=== PATIENT | female | born 1975 | race Caucasian/White ===

== ENCOUNTER → 2020-01-31 | Outpatient (CLI) | payer BC | LOC: LAB FS 07:21 | PROVIDERS: ATTEND Family Medicine | DX: Z01.89 Encounter for other specified special examinations (principal) | CPT/HCPCS: 87804 ==

== ENCOUNTER → 2020-04-17 | Outpatient (CLI) | payer BC, OTHER | LOC: LAB FS 16:37 | PROVIDERS: ATTEND Family Medicine | DX: Z20.828 Contact with and (suspected) exposure to other viral communicable diseases (principal) | CPT/HCPCS: 36415; 80051; 86769 ==

== ENCOUNTER → 2020-10-25 | Outpatient (CLI) | payer OTHER | LOC: LAB FS 13:30 | PROVIDERS: ATTEND Family Medicine | DX: U07.1 COVID-19 (principal) | CPT/HCPCS: 87635 ==

== ENCOUNTER → 2021-11-22 | Outpatient (CLI) | payer OTHER | LOC: LAB FS 09:16 | PROVIDERS: ATTEND Emergency Medicine | DX: R68.83 Chills (without fever) (principal); R53.1 Weakness; R42 Dizziness and giddiness; M79.10 Myalgia, unspecified site | CPT/HCPCS: 87804 ==

== ENCOUNTER → 2022-03-13 | Outpatient (CLI) | payer OTHER ==
[2022-03-13 11:07] LABS: POTASSIUM 3.8 MMOL/L (3.6-5.0)
[2022-03-13 11:08] LABS: ALBUMIN 4.5 GM/DL (3.2-4.5); BILIRUBIN,TOTAL 0.3 MG/DL (0.1-1.0); CALCIUM 9.1 MG/DL (8.5-10.1); CREATININE SERUM 0.65 MG/DL (0.60-1.30); TOTAL PROTEIN 7.1 GM/DL (6.4-8.2)
== END ==
LOC: LAB FS 10:11
PROVIDERS: ATTEND Registered Nurse Emergency
DX: Z00.00 Encounter for general adult medical examination without abnormal findings (principal); R10.9 Unspecified abdominal pain
CPT/HCPCS: 36415; 80053; 80061

== ENCOUNTER 2022-05-27 06:30 | Emergency (ER) | payer OTHER ==
[~2022-05-27] VITALS: Ht 162.5 cm; Wt 63.6 kg
--- NOTE | 2022-05-27 06:47 | ED General ---
General Stated Complaint: SYNCOPE Source of Information: Patient Exam Limitations: No Limitations (TAE DE SOUZA MD) History of Present Illness Date Seen by Provider: May 27, 2022 Time Seen by Provider: 06:36 Initial Comments 47-year-old female with past medical history of anxiety and depression coming in after she had syncopal episode getting ready in the bathroom. Woke up on the ground. Does not believe she hit her head because she has no trauma, and remembers everything prior to and after. Does not have a headache. Currently she just feels jittery and palpitations like her heart is racing. Denies anything like this ever happening before. Denying any current chest pain, shortness of breath, abdominal pain, nausea, vomiting, diarrhea, focal weakness or numbness, vision changes, fever, chills, or any other concerns. She had been eating and drinking normally. LMP was last week (TAE DE SOUZA MD) Allergies and Home Medications Allergies Coded Allergies: Sulfa (Sulfonamide Antibiotics) (Verified Allergy, Unknown, 05/27/22) Patient Home Medication List Home Medication List Reviewed: Yes (TAE DE SOUZA MD) Home Medication List Reviewed: Yes (BRYAN MAXWELL MD) Desvenlafaxine Succinate (Desvenlafaxine Succinate ER) 100 Mg Tab.er.24h, (Reported) Entered as Reported by: CLAY KIDD on 05/27/22717 Last Action: New Order Dorzolamide HCl/Timolol Maleat (Dorzolamide-Timolol Eye Drops) 22.3 Mg-6.8 Mg/Ml Drops, (Reported) Entered as Reported by: CLAY KIDD on 05/27/22717 Last Action: New Order Gabapentin (Gabapentin) 100 Mg Capsule, (Reported) Entered as Reported by: CLAY KIDD on 05/27/22717 Last Action: New Order Trazodone HCl (Trazodone HCl) 50 Mg Tablet, (Reported) Entered as Reported by: LCAY KIDD on 05/27/22717 Last Action: New Order Review of Systems Review of Systems Constitutional: No chills, No fever EENTM: No nose congestion Respiratory: No cough, No short of breath Cardiovascular: No chest pain; syncope Gastrointestinal: No abdominal pain Genitourinary: no symptoms reported Musculoskeletal: no symptoms reported Skin: no symptoms reported Psychiatric/Neurological: Anxiety, Paresthesia Hematologic/Lymphatic: No Symptoms Reported Immunological/Allergic: no symptoms reported (TAE DE SOUZA MD) All Other Systems Reviewed Negative Unless Noted: Yes (TAE DE SOUZA MD) Past Xzkggiq-Ieznyk-Nvbado Hx Patient Social History Tobacco Use?: Yes Tobacco type used: Cigarettes (TAE DE SOUZA MD) Past Medical History Surgeries: Yes (eye surgery, breast augmentation) (TAE DE SOUZA MD) Physical Exam Vital Signs Vital Signs - First Documented 05/27/22 06:35 Temp 36.8 Pulse 119 Resp 17 B/P (MAP) 159/103 (121) Pulse Ox 98 O2 Delivery Room Air (BRYAN MAXWELL MD) Vital Signs Capillary Refill : (TAE DE SOUZA MD) Height, Weight, BMI Height: '" Weight: lbs. oz. kg; BMI Method: General Appearance: No Apparent Distress, WD/WN Eyes: Bilateral Eye Normal Inspection HEENT: PERRL/EOMI, Normal ENT Inspection, Pharynx Normal Neck: Full Range of Motion, Normal Inspection, Non Tender, Supple Respiratory: Chest Non Tender, Lungs Clear, Normal Breath Sounds, No Accessory Muscle Use, No Respiratory Distress Cardiovascular: No Edema, Normal Peripheral Pulses, Tachycardia Gastrointestinal: Normal Bowel Sounds, Non Tender, Soft Back: Normal Inspection, No CVA Tenderness Extremity: Normal Capillary Refill, Normal Inspection, Normal Range of Motion, Non Tender, No Calf Tenderness Neurologic/Psychiatric: Alert, Oriented x3, No Motor/Sensory Deficits, Normal Mood/Affect, moving worker II-XII Norm as Tested, Other (Normal [id number], normal gait) Skin: Normal Color, Warm/Dry Lymphatic: No Adenopathy (TAE DE SOUZA MD) Progress/Results/Core Measures Suspected Sepsis SIRS Temperature: Pulse: Respiratory Rate: Blood Pressure / Mean: (TAE DE SOUZA MD) Results/Orders Lab Results Laboratory Tests Test 05/27/22 06:42 Range/Units White Blood Count 10.6 4.3-11.0 10^3/uL Red Blood Count 4.46 3.80-5.11 10^6/uL Hemoglobin 15.8 11.5-16.0 g/dL Hematocrit 45 35-52 % Mean Corpuscular Volume 100 H 80-99 fL Mean Corpuscular Hemoglobin 35 H 25-34 pg Mean Corpuscular Hemoglobin Concent 35 32-36 g/dL Red Cell Distribution Width 15.4 H 10.0-14.5 % Platelet Count 187 130-400 10^3/uL Mean Platelet Volume 12.1 9.0-12.2 fL Immature Granulocyte % (Auto) 0 % Neutrophils (%) (Auto) 67 42-75 % Lymphocytes (%) (Auto) 25 12-44 % Monocytes (%) (Auto) 7 0-12 % Eosinophils (%) (Auto) 1 0-10 % Basophils (%) (Auto) 0 0-10 % Neutrophils # (Auto) 7.1 1.8-7.8 10^3/uL Lymphocytes # (Auto) 2.7 1.0-4.0 10^3/uL Monocytes # (Auto) 0.7 0.0-1.0 10^3/uL Eosinophils # (Auto) 0.1 0.0-0.3 10^3/uL Basophils # (Auto) 0.0 0.0-0.1 10^3/uL Immature Granulocyte # (Auto) 0.0 0.0-0.1 10^3/uL Sodium Level 140 135-145 MMOL/L Potassium Level 3.8 3.6-5.0 MMOL/L Chloride Level 102 98-107 MMOL/L Carbon Dioxide Level 24 21-32 MMOL/L Anion Gap 14 5-14 MMOL/L Blood Urea Nitrogen 8 7-18 MG/DL Creatinine 0.65 0.60-1.30 MG/DL Estimat Glomerular Filtration Rate 110 BUN/Creatinine Ratio 12 Glucose Level 116 H 70-105 MG/DL Calcium Level 8.7 8.5-10.1 MG/DL Corrected Calcium 8.3 L 8.5-10.1 MG/DL Magnesium Level 1.5 L 1.6-2.4 MG/DL Total Bilirubin 1.2 H 0.1-1.0 MG/DL Aspartate Amino Transf (AST/SGOT) 47 H 5-34 U/L Alanine Aminotransferase (ALT/SGPT) 28 0-55 U/L Alkaline Phosphatase 97 40-136 U/L Troponin I < 0.30 <0.30 NG/ML Total Protein 7.3 6.4-8.2 GM/DL Albumin 4.5 3.2-4.5 GM/DL (BRYAN MAXWELL MD) Medications Given in ED Current Medications Medications Dose Ordered Sig/Hortencia Route Start Time Stop Time Status Last Admin Dose Admin Lactated Ringer's 1,000 ml @ 0 mls/hr Q0M ONCE IV 05/27/22 07:00 05/27/22 07:01 DC 05/27/22 06:53 0 MLS/HR (BRYAN MAXWELL MD) Vital Signs/I&O 05/27/22 05/27/22 06:35 07:15 Temp 36.8 Pulse 119 104 Resp 17 16 B/P (MAP) 159/103 (121) 161/97 Pulse Ox 98 97 O2 Delivery Room Air Room Air (BRYAN MAXWELL MD) Vital Signs/I&O Capillary Refill : (TAE DE SOUZA MD) Progress Note : Progress Note 47yoF with above history coming in after a syncopal episode. ABCs were intact and vitals were stable on presentation although she is mildly tachycardic. EKG obtained showing sinus tachycardia with no significant ischemic changes. QTc 416. An IV was placed and she was given a bolus of IV fluids as well as basic labs and cardiac biomarkers ordered. Heart score is 2 for age and risk factors, but not having any chest pain and unlikely ACS. Her modified [place] score would put her at a lower risk for a PE, however she cannot be PERC negative given her tachycardia. D-dimer then ordered and is pending at this time. At this time the patient was signed out to the oncoming physician pending her work-up. (TAE DE SOUZA MD) Progress Note #1: Time: 07:14 Progress Note Assumed care of patient. Reviewed history with previous provider and with patient. 47-year-old female coming in after feeling weird for the patient. Patient got up to take a shower started feeling weird and had a syncopal episode. Unsure how long she was out. Does not think she hit her head. Feels a little weak in the lower extremities. Having palpitations. No chest pain. No shortness of breath. X-ray results reviewed and that was negative for any acute process. Currently there are labs pending. CBC looks to be within normal limits. He does have an MCV of 100 which is elevated. Progress Note #2: Time: 07:56 Progress Note D-dimer is elevated twice the upper limit of normal at 1.0. Normal being 0- 0.49. Based on the history of smoking and does have the implanted control and the tachycardia will order CTA to rule out PE Progress Note #3: Time: 08:49 Progress Note CTA negative for any pulmonary embolism. Heart rate is improved. Will discharg e patient home with follow-up for primary care. ER precautions given. (BRYAN MAXWELL MD) ECG Initial ECG Impression Date: May 27, 2022 Initial ECG Impression Time: 06:46 Initial ECG Rate: 108 Initial ECG Rhythm: Normal Sinus, S.Tach Comment Narrow QRS, normal axis, no significant ST changes or T wave abnormalities, no prior EKG to compare to (TAE DE SOUZA MD) Transfer of Care Transfer of Care Time: 07:00 Care transferred to: Dr Maxwell (BRYAN MAXWELL MD) Departure Impression Primary Impression: Syncope Qualified Codes: R55 - Syncope and collapse Additional Impression: Tachycardia Disposition: 01 HOME, SELF-CARE Condition: Stable Departure-Patient Inst. Referrals: DIRK PEREIRA MD (PCP/Family) Primary Care Physician Patient Instructions: Syncope (Fainting), Tachycardia Work/School Note: Work Release Form Date Seen in the Emergency Department: May 27, 2022 Return to Work: May 28, 2022 Restrictions: No Restrictions TAE DE SOUZA MD May 27, 2022 06:46 BRYAN MAXWELL MD May 27, 2022 07:19
[2022-05-27 06:51] LABS: BASOPHILS % (AUTO) 0 % (0-10); EOSINOPHILS # (AUTO) 0.1 10^3/uL (0.0-0.3); EOSINOPHILS % (AUTO) 1 % (0-10); HEMATOCRIT 45 % (35-52); HEMOGLOBIN 15.8 g/dL (11.5-16.0); LYMPHOCYTES # (AUTO) 2.7 10^3/uL (1.0-4.0); LYMPHOCYTES % (AUTO) 25 % (12-44); MEAN CORPUSCULAR HEMOGLOBIN 35 pg (25-34); MEAN CORPUSCULAR HGB CONC 35 g/dL (32-36); MEAN CORPUSCULAR VOLUME 100 fL (80-99); MEAN PLATELET VOLUME 12.1 fL (9.0-12.2); MONOCYTES # (AUTO) 0.7 10^3/uL (0.0-1.0); MONOCYTES % (AUTO) 7 % (0-12); NEUTROPHILS # (AUTO) 7.1 10^3/uL (1.8-7.8); NEUTROPHILS % (AUTO) 67 % (42-75); PLATELET COUNT 187 10^3/uL (130-400); WHITE BLOOD COUNT 10.6 10^3/uL (4.3-11.0)
[2022-05-27] MEDS ORDERED: LACTATED RINGERS 1,000 ML IV ONE (07:00)
--- NOTE | 2022-05-27 07:00 | Diagnostic Imaging Report ---
INDICATION: Syncope, chest pain. TECHNIQUE: Single view chest 6:53 AM. CORRELATION STUDY: None FINDINGS: The heart size, mediastinal configuration and pulmonary vascularity are within normal limits. The lungs are clear with no consolidating infiltrate. There is no significant effusion or pneumothorax. IMPRESSION: 1. Negative appearing portable chest. Dictated by: Dictated on workstation # [id number]
[2022-05-27 07:16] LABS: POTASSIUM 3.8 MMOL/L (3.6-5.0)
[2022-05-27 07:17] LABS: ALBUMIN 4.5 GM/DL (3.2-4.5); BILIRUBIN,TOTAL 1.2 MG/DL (0.1-1.0); CALCIUM 8.7 MG/DL (8.5-10.1); CREATININE SERUM 0.65 MG/DL (0.60-1.30); MAGNESIUM 1.5 MG/DL (1.6-2.4); TOTAL PROTEIN 7.3 GM/DL (6.4-8.2)
[2022-05-27] MEDS ORDERED: TRZ50T (07:18)
[2022-05-27] MEDS ORDERED: GABA-486 (07:18)
[2022-05-27] MEDS ORDERED: DORZ10DR8 (07:18)
[2022-05-27] MEDS ORDERED: DESV100T16 (07:18)
[2022-05-27 07:42] LABS: INR 0.9 (0.8-1.4); PROTHROMBIN TIME PATIENT 12.7 SEC (12.2-14.7)
[2022-05-27] MEDS ORDERED: HOLD METFORMIN - RECEIVED CONTRAST 20 ML VIAL IV SCH (08:15)
[2022-05-27] MEDS ORDERED: NS 100 ML (IVPB) BAG IV ONE (08:15)
[2022-05-27] MEDS ORDERED: IOHEXOL 350 MG/ML 100 ML (OMNIPAQUE 350) VIAL IV ONE (08:15)
--- NOTE | 2022-05-27 08:39 | Diagnostic Imaging Report ---
EXAMINATION: CT angiography of the chest. TECHNIQUE: Contrast enhanced thin section helical images were obtained through the chest with intravenous contrast timed for the optimal opacification of the arterial structures per CTA protocol. Post-processing, reconstructions and interpretation of angiographic images of the vessels was performed. 3D MIP reconstructions were performed and reviewed. All CT scans use one or more of the following dose optimizing techniques: automated exposure control, MA and/or KvP adjustment based on a patient size and exam type, or iterative reconstruction. HISTORY: tachycardia, elevated D-Dimer COMPARISON: None available. FINDINGS: Vascular: No filling defects within the pulmonary arteries. Thoracic aorta is normal in caliber. Thyroid: The thyroid is normal. Mediastinum: Heart size is normal without significant pericardial effusion. No suspicious lymphadenopathy. Lungs and airways: The lungs are clear without consolidation, pleural effusion, or pneumothorax. The airways are normal. Upper abdomen: The subphrenic structures are normal. Musculoskeletal: No suspicious osseous lesion or compression fracture. IMPRESSION: 1. No findings of pulmonary embolus or other acute abnormality in the chest. Dictated by: Dictated on workstation # [id number]
[2022-05-27 08:58] VITALS: BP 152/91
== END 2022-05-27 09:00 | disposition home or self-care (01) ==
LOC: EDUNIT# 06:30 → ER FS 06:33
DX: R55 Syncope and collapse (principal); R00.0 Tachycardia, unspecified; R79.1 Abnormal coagulation profile; F17.210 Nicotine dependence, cigarettes, uncomplicated; Z97.5 Presence of (intrauterine) contraceptive device
CPT/HCPCS: 36415; 71045; 71275; 80053; 83735; 84484; 85025; 85379; 85610; 85730; 93005; 93041; Q9967

== ENCOUNTER → 2022-09-20 | Outpatient (CLI) | payer OTHER ==
[~2022-09-20] MED LIST: DESV100T16; DORZ10DR8; GABA-486; TRZ50T
== END ==
LOC: LAB FS 12:19
PROVIDERS: ATTEND Family Medicine
DX: Z00.00 Encounter for general adult medical examination without abnormal findings (principal); Z12.11 Encounter for screening for malignant neoplasm of colon; Z23 Encounter for immunization; G47.00 Insomnia, unspecified; N91.2 Amenorrhea, unspecified; E78.5 Hyperlipidemia, unspecified; Z76.0 Encounter for issue of repeat prescription
CPT/HCPCS: 36415; 83001